=== PATIENT | female | born 1965 | race Two or more races ===

== ENCOUNTER 2016-04-03 06:21 | Day surgery (SDC) | payer OTHER ==
[~2016-04-03] VITALS: Ht 152.4 cm; Wt 52.5 kg
[~2016-04-03 06:21] MED LIST: claritin PO; omeprazole PO
[2016-04-03 07:00] VITALS: BP 89/50; PULSE 49; RESP 16; Ht 152.4 cm; Wt 52.5 kg
[2016-04-03] MEDS ORDERED: BENADRYL PO (07:20)
[2016-04-03] MEDS ORDERED: MIDAZOLAM 1 MG/ML 2 ML INJ ONE ×2 (07:47)
[2016-04-03] MEDS ORDERED: FENTAnyl 50 MCG/ML VIAL ONE (07:47)
[2016-04-03 08:06] VITALS: BP 113/55; RESP 20
[2016-04-03] MEDS ORDERED: ONDANSETRON 4 MG INJ ONE (08:38)
--- NOTE | 2016-04-03 08:47 | GILP ---
DATE OF PROCEDURE: 04/03/2016 NAME OF PROCEDURE: Esophagogastroduodenoscopy and biopsy. SURGEON: Rae Bashir MD PREOPERATIVE DIAGNOSIS: Upper abdominal pain. POSTOPERATIVE DIAGNOSES: 1. Hiatal hernia. 2. Gastroesophageal reflux disease. 3. Gastritis with erosions. 4. Gastric mucosal biopsies were taken for Helicobacter pylori test. INDICATION FOR THE PROCEDURE: Ms. Danita Campo is a 50-year-old female patient who had upper abdomin al pain not responding to therapy. The patient was scheduled for endoscopic examination for further evaluation. The procedure and possible complications are well explained to the patient. She understood and cons ented to the procedure. DESCRIPTION OF PROCEDURE: Under the influence of fentanyl and Versed, the gastroscope was carefully introduced into the esophagus, and under direct vision, it was advanced to the stomach and through the pylorus into the duodenal bulb and descending duodenum. FINDINGS: ESOPHAGUS: The patient had hiatal hernia and gastroesophageal reflux disease. STOMACH: She had gastritis with erosions. Gastric mucosal biopsies were taken for H. pylori test. DUODENUM: Normal. She tolerated the procedure very well, and there was no complication from the procedure. At the end of the procedures, she was awake with stable vital signs, and she was discharged home to the care o f her family. IMPRESSION: Please see postoperative diagnosis. PLAN: 1. Continue omeprazole. 2. Add Zantac 300 mg p.o. at bedtime. 3. Await H. pylori test report. Dictated By: RAE ACUNA/PAPO Conf#: [id number] DID#: [id number]
== END 2016-04-03 12:33 | disposition home or self-care (01) ==
LOC: GIL 06:21
PROVIDERS: ATTEND Internal Medicine Gastroenterology
DX: K44.9 Diaphragmatic hernia without obstruction or gangrene (principal); K21.9 Gastro-esophageal reflux disease without esophagitis; B96.81 Helicobacter pylori [H. pylori] as the cause of diseases classified elsewhere; K29.60 Other gastritis without bleeding
CPT/HCPCS: 43239; 87081; J2250; J2405; J3010; Z7610